=== PATIENT | female | born 1980 | race Caucasian/White ===

== ENCOUNTER 2020-09-02 12:19 | Inpatient (IN) | payer MEDICARE, OTHER ==
[~2020-09-02] VITALS: Ht 165.1 cm; Wt 56.7 kg
[2020-09-02 13:32] LABS: Source, Urine Clean Catch
[2020-09-02 13:37] LABS: BASOPHILS PERCENT AUTO 1 % (0-2); EOSINOPHILS ABSOLUTE AUTO 0.03 K/mm3 (0.00-0.68); EOSINOPHILS PERCENT AUTO 0 % (0-6); Hematocrit 40.8 % (33.0-51.0); Hemoglobin 13.4 g/dL (11.5-16.0); IMMATURE GRAN PERCENT AUTO 1 % (0-1); LYMPHOCYTES ABSOLUTE AUTO 1.71 K/mm3 (0.84-5.20); LYMPHOCYTES PERCENT AUTO 8 % (21-46); MONOCYTES ABSOLUTE AUTO 0.63 K/mm3 (0.16-1.47); MONOCYTES PERCENT AUTO 3 % (4-13); Mean Corpuscular HGB 28.7 pg (26.0-34.0); Mean Corpuscular HGB Conc 32.8 g/dL (31.5-36.5); Mean Corpuscular Volume 87 fL (80-100); NEUTROPHILS PERCENT AUTO 88 % (41-73); Platelet Count 414 K/mm3 (150-400); RDW Coefficient Variation 11.8 % (11.7-14.2); RDW Standard Deviation 37.5 fL (35.1-46.3); Red Blood Cell Count 4.67 M/mm3 (3.80-5.20); White Blood Cell Count 21.67 K/mm3 (4.00-11.30)
[2020-09-02 13:38] LABS: Appearance, Urine Clear (Clear); Bilirubin, Urine Neg (Neg); Blood, Urine 2+ (Neg); Color, Urine Yellow (P-Yellow); Glucose Qualitative, Urine 4+ (Neg); Ketones, Urine 4+ (Neg); Leukocyte Esterase, Urine Neg (Neg); Nitrite, Urine Neg (Neg); Protein, Urine Neg (Neg); Urobilinogen, Urine NORM (Normal)
[2020-09-02 13:55] LABS: Alanine Aminotransfer (ALT/SGP 24 U/L (12-78); Albumin, Blood 4.3 g/dL (3.4-5.0); Albumin/Globulin Ratio 1.1 (0.8-1.8); Alk Phos 156 U/L (50-136); Anion Gap 23 mmol/L (6-16); Aspartate Aminotrans (AST/SGOT 11 U/L (12-37); Bilirubin, Total 0.6 mg/dL (0.1-1.0); Blood Urea Nitrogen 24 mg/dL (8-24); Bun/Creatinine Ratio 45.2 (12.0-20.0); CO2, Blood 14 mmol/L (21-32); Calcium, Blood 9.4 mg/dL (8.5-10.1); Chloride, Blood 94 mmol/L (98-108); Creatinine, Blood 0.53 mg/dL (0.40-1.00); Globulin, Blood 3.8 g/dL (2.2-4.0); Glomerular Filtration Rate >60 (60-); Glucose, Blood 557 mg/dL (70-99); Potassium, Blood 3.9 mmol/L (3.5-5.5); Sodium, Blood 131 mmol/L (136-145); Total Protein, Blood 8.1 g/dL (6.4-8.2)
[2020-09-02 14:07] LABS: Bacteria Few /hpf; Squamous Epithelial Cells Few /hpf (Few); White Blood Cells, Urine 0-2 /hpf (0-5)
[2020-09-02 14:28] LABS: Beta-hydroxybutyrate 55.2 mg/dL (0.2-2.8); Glucose, Blood 567 mg/dL (70-99)
[2020-09-02] MEDS ORDERED: TRESIBA FL200 UNIT/2 (14:32)
[2020-09-02 14:43] LABS: Base Excess Venous -16.7 mmol/L; Bicarbonate Venous 13.1 mmol/L (24.0-30.0); PCO2 Venous 30.5 mmHg (38-42); PO2 Venous 105 mmHg (38-42); pH Blood Venous 7.19 (7.34-7.37)
[2020-09-02] MEDS ORDERED: CYMBALTA30 MG PO (15:07)
[2020-09-02 17:27] LABS: Anion Gap 18 mmol/L (6-16); Blood Urea Nitrogen 22 mg/dL (8-24); CO2, Blood 12 mmol/L (21-32); Calcium, Blood 8.6 mg/dL (8.5-10.1); Chloride, Blood 105 mmol/L (98-108); Creatinine, Blood 0.49 mg/dL (0.40-1.00); Glomerular Filtration Rate >60 (60-); Glucose, Blood 382 mg/dL (70-99); Sodium, Blood 135 mmol/L (136-145)
--- NOTE | 2020-09-02 18:18 | NUR ---
SUMMARY Assumed care of pt upon arrival to ICU 16 from emergency department. Pt arrived with insulin drip to mediport at rate of 5.4 units/hr. Blood sugar checked. Insulin drip increased to 6 units per hour. Pt states she had mediport placed approx 1 month ago. She has it because she has recurrent episodes of DKA triggered by gastroparesis. Pt states she is very anxious. States she takes 1 mg of ativan twice a day at home. This RN contacted pt's pharmacy, [facility], as pt does not know the doses of several of her medications. Per pharmacy, ativan is prescribed 0.5 mg TID. On assessment, pt is A&O x 4. Follows commands. Verbalizes needs. Answers questions, however does not always provide factual answers. Patient asked for Glucerna and this RN educated this was not a good choice considering pt was vomiting. Pt stated "I haven't vomited" although there was emesis in a recently given emesis bag. When asked about emesis in bag, pt states "that's from a long time ago" although this RN replaced bag 10 minutes prior. Another example is this RN found pt in room with IV lines and cords stretched across room. When educated that pt needs to call staff for in-room activity because patient should not be disconnecting cords and lines, pt states "I didn't disconnect anything" although BP cuff and SpO2 were disconnected and these had been connected the last time this RN was in the room (approx 2 minutes prior and nobody else had entered the room). Patient is also difficult to educate. About every 5 minutes, pt asks for ice. Patient educated that this is not a good choice because she is vomiting and often sticking finger down throat to induce vomiting. Pt states "I feel better after I vomit". Pt educated that this is not a good choice and she needs to stop doing this, especially since there is blood in her emesis (emesis is clear but with a red/brown tint). Pt states she understands but then immediately sticks finger in throat to induce vomiting and then again asks for ice. On assessment, lungs are diminished t/o. SpO2 100% on room air. ST per monitor. BP high-normal. Pt voids urine into commode. Stable on feet but has no regard for cords and lines. At this time, insulin drip at 6 units/hr. IV fluids per orders.
[2020-09-02] MEDS ORDERED: OXYC5 PO (18:34)
[2020-09-02] MEDS ORDERED: ONDA4ODT MM (18:35)
[2020-09-02] MEDS ORDERED: LORA.5 PO (18:36)
[2020-09-02] MEDS ORDERED: METO5A PO (18:37)
[2020-09-02] MEDS ORDERED: PROC5 PO (18:38)
[2020-09-02] MEDS ORDERED: Nicoderm Cq1 EAC1 TOP (18:43)
[2020-09-02] MEDS ORDERED: LAMO100 PO (18:43)
[2020-09-02 19:04] LABS: U Amphetamine Screen Not Detected; U Barbituate Screen Not Detected; U Benzodiazapine Screen Not Detected; U Buprenorphine Screen Not Detected; U Cannabinoids Screen DETECTED; U Cocaine Screen Not Detected; U Methadone Screen Not Detected; U Methamphetamine Screen Not Detected; U Opiates Screen Not Detected; U Oxycodone Screen Not Detected; U Phencyclidine Screen Not Detected
[2020-09-02 19:05] LABS: U Propoxyphene Screen Not Detected
[2020-09-02 20:19] LABS: Hematocrit 34.7 % (33.0-51.0); Hemoglobin 11.9 g/dL (11.5-16.0)
[2020-09-02 20:35] LABS: Anion Gap 10 mmol/L (6-16); Blood Urea Nitrogen 20 mg/dL (8-24); Bun/Creatinine Ratio 43.3 (12.0-20.0); CO2, Blood 18 mmol/L (21-32); Calcium, Blood 8.5 mg/dL (8.5-10.1); Chloride, Blood 111 mmol/L (98-108); Creatinine, Blood 0.46 mg/dL (0.40-1.00); Glomerular Filtration Rate >60 (60-); Glucose, Blood 201 mg/dL (70-99); Potassium, Blood 4.2 mmol/L (3.5-5.5); Sodium, Blood 139 mmol/L (136-145)
--- NOTE | 2020-09-02 21:11 | NUR ---
Care Assumed 1900 Pt sitting in bed watching TV. Insulin GTT 5 u/hr and Protonix gtt 10 ml/hr. Dr. Cole called due to patients POC glucose being 233. Recieved orders to switch NS TO D5W1/2NS. Pt is A/O X4, able to make needs known and change position in bed. Pt states chronic throbbing sharp mid back pain of 8/10. Pt has nausea 5-6/10, treated per emar. Pt had 200 mls of liquid brown emesis. She continues to ask for ice chips, food, and liquid after being educated on her NPO status. Disucssed patients code status with her and she would like to be switched from DNR to Limited code status with CPR and meds only. Updatedd Dr. Cole on pts wishes. Code status changed.
--- NOTE | 2020-09-02 22:17 | NUR ---
Update Pt found to be sitting in bed with a finger down her throat to voluntarily gag herself and induce vomit. Pt vomited 200 mls of brown liquid. Discussed with pt the importance of not inducing vomiting. Pt states she needs something to eat/drink or her mouth is too dry. Gave swab to patients with little positive effect. Will continue to monitor.
--- NOTE | 2020-09-02 23:59 | NUR ---
UPDATE Spoke to Dr. Cole in regards to patients nausea/vomiting episode, new orders recieved. Also, pt states having mid back pain 8/10 for which she takes oxycodone at home, recieved orders from Dr. Cole. Diet changed from NPO to clear liquid. Since changes, pt has not vomited nor has she attempted to induce vomit. Nausea has improved from 7/10 to 2/10. Tolerating ice chips well.
[2020-09-03 00:59] LABS: Anion Gap 7 mmol/L (6-16); Blood Urea Nitrogen 18 mg/dL (8-24); Bun/Creatinine Ratio 38.9 (12.0-20.0); CO2, Blood 23 mmol/L (21-32); Calcium, Blood 7.8 mg/dL (8.5-10.1); Chloride, Blood 110 mmol/L (98-108); Creatinine, Blood 0.46 mg/dL (0.40-1.00); Glomerular Filtration Rate >60 (60-); Glucose, Blood 176 mg/dL (70-99); Potassium, Blood 3.6 mmol/L (3.5-5.5); Sodium, Blood 140 mmol/L (136-145)
[2020-09-03 04:39] LABS: BASOPHILS ABSOLUTE AUTO 0.04 K/mm3 (0.00-0.23); BASOPHILS PERCENT AUTO 0 % (0-2); EOSINOPHILS PERCENT AUTO 0 % (0-6); Hematocrit 30.6 % (33.0-51.0); Hemoglobin 10.4 g/dL (11.5-16.0); IMMATURE GRAN ABSOLUTE AUTO 0.13 K/mm3 (0.00-0.10); IMMATURE GRAN PERCENT AUTO 1 % (0-1); LYMPHOCYTES ABSOLUTE AUTO 2.23 K/mm3 (0.84-5.20); LYMPHOCYTES PERCENT AUTO 11 % (21-46); MONOCYTES ABSOLUTE AUTO 1.61 K/mm3 (0.16-1.47); MONOCYTES PERCENT AUTO 8 % (4-13); Mean Corpuscular Volume 85 fL (80-100); Mean Platelet Volume 8.5 fL (9.1-12.4); NEUTROPHILS PERCENT AUTO 80 % (41-73); Platelet Count 319 K/mm3 (150-400); RDW Coefficient Variation 11.9 % (11.7-14.2); RDW Standard Deviation 36.7 fL (35.1-46.3); Red Blood Cell Count 3.59 M/mm3 (3.80-5.20); White Blood Cell Count 20.01 K/mm3 (4.00-11.30)
[2020-09-03 04:57] LABS: Anion Gap 7 mmol/L (6-16); Blood Urea Nitrogen 16 mg/dL (8-24); Bun/Creatinine Ratio 37.4 (12.0-20.0); CO2, Blood 22 mmol/L (21-32); Calcium, Blood 7.9 mg/dL (8.5-10.1); Chloride, Blood 109 mmol/L (98-108); Creatinine, Blood 0.43 mg/dL (0.40-1.00); Glomerular Filtration Rate >60 (60-); Glucose, Blood 138 mg/dL (70-99); Potassium, Blood 3.6 mmol/L (3.5-5.5); Sodium, Blood 138 mmol/L (136-145)
--- NOTE | 2020-09-03 06:14 | NUR ---
Shift Summary Insulin gtt 1 u/hr and 1/2NSD5 100 ML/HR, infusing via left chest mediport. Protonix 10 ml/hr, infusing via left hand IV. Pt denies mid back pain at this time. Nausea of 3/10, no active vomiting since receiving compazine. Pt resting/sleeping t/o the rest of the shift after pain and nausea managed per emar. Pt tolerating being up to the toilet with minimal assistance well. She is A/O X 4. Will report to oncoming shift.
--- NOTE | 2020-09-03 06:55 | NUR ---
ASSUMED PT CARE REPORT FROM MARCIN SERNA. ASSUMED PT CARE. PT ALERT AND ORIENTED. C/O INTERMITTENT NAUSEA. IMPROVED SINCE FRANCISCO RN STARTED COMPAZINE. PT TOLERATING CLEAR LIQUIDS. MOVES IN BED INDEPENDENTLY. USES CALL LIGHT APPROPRIATELY. MAKES NEEDS KNOWN. PT SKIN WARM, INTACT. UP TO TOILED TO VOID. PT HAS 20G TO LEFT HAND WITH PROTONIX INF @ 10ML/HR. SITE WNL. DRESSING C/D/I. PT HAS MEDIPORT TO LEFT CHEST THAT IS ACCESSED AND HAS D51/2NS INF @ 100ML/HR AND INSULIN INF @ 1UNIT/HR. SITE WNL, DRESSING C/D/I. ABD SOFT AND NON TENDER. BOWEL TONES ACTIVE. CALL LIGHT IN REACH. PT RESTING COMFORTABLY AND EASILY DOZES TO SLEEP. SEE FULL SHIFT ASSESSMENT.
[2020-09-03 08:52] LABS: Anion Gap 8 mmol/L (6-16); Blood Urea Nitrogen 14 mg/dL (8-24); Bun/Creatinine Ratio 32.4 (12.0-20.0); CO2, Blood 22 mmol/L (21-32); Calcium, Blood 7.8 mg/dL (8.5-10.1); Chloride, Blood 107 mmol/L (98-108); Creatinine, Blood 0.43 mg/dL (0.40-1.00); Glomerular Filtration Rate >60 (60-); Glucose, Blood 188 mg/dL (70-99); Potassium, Blood 3.5 mmol/L (3.5-5.5); Sodium, Blood 137 mmol/L (136-145)
[2020-09-03 12:18] LABS: BASOPHILS ABSOLUTE AUTO 0.03 K/mm3 (0.00-0.23); BASOPHILS PERCENT AUTO 0 % (0-2); EOSINOPHILS ABSOLUTE AUTO 0.03 K/mm3 (0.00-0.68); EOSINOPHILS PERCENT AUTO 0 % (0-6); Hematocrit 29.1 % (33.0-51.0); Hemoglobin 9.8 g/dL (11.5-16.0); IMMATURE GRAN ABSOLUTE AUTO 0.14 K/mm3 (0.00-0.10); IMMATURE GRAN PERCENT AUTO 1 % (0-1); LYMPHOCYTES ABSOLUTE AUTO 1.93 K/mm3 (0.84-5.20); LYMPHOCYTES PERCENT AUTO 11 % (21-46); MONOCYTES ABSOLUTE AUTO 0.86 K/mm3 (0.16-1.47); MONOCYTES PERCENT AUTO 5 % (4-13); Mean Corpuscular HGB 29.2 pg (26.0-34.0); Mean Corpuscular HGB Conc 33.7 g/dL (31.5-36.5); Mean Corpuscular Volume 87 fL (80-100); Mean Platelet Volume 8.4 fL (9.1-12.4); NEUTROPHILS ABSOLUTE AUTO 14.01 K/mm3 (1.96-9.15); NEUTROPHILS PERCENT AUTO 82 % (41-73); Platelet Count 292 K/mm3 (150-400); RDW Standard Deviation 38.7 fL (35.1-46.3); Red Blood Cell Count 3.36 M/mm3 (3.80-5.20)
[2020-09-03 12:27] LABS: Anion Gap 8 mmol/L (6-16); Blood Urea Nitrogen 10 mg/dL (8-24); Bun/Creatinine Ratio 24.4 (12.0-20.0); CO2, Blood 22 mmol/L (21-32); Calcium, Blood 7.9 mg/dL (8.5-10.1); Chloride, Blood 105 mmol/L (98-108); Creatinine, Blood 0.41 mg/dL (0.40-1.00); Glomerular Filtration Rate >60 (60-); Glucose, Blood 202 mg/dL (70-99); Potassium, Blood 3.6 mmol/L (3.5-5.5); Sodium, Blood 135 mmol/L (136-145)
[2020-09-03] MEDS ORDERED: PANT40 PO (13:38)
--- NOTE | 2020-09-03 13:55 | NUR ---
PT DC HOME WITH MOTHER. IV TO LEFT HAND ALREADY D/C, SITE WNL. AFTER FLUSHING MEDIPORT WITH HEPARIN, SITE DEACCESSED AND DRESSING PLACED. PT DRESSED INTO STREET CLOTHES INDEPENDENTLY. REVIEWED D/C INSTRUCTIONS WITH PT, ADDRESSED ANY QUESTIONS. PT VERBALIZED UNDERSTANDING OF INSTRUCTIONS AND NEW MEDICATION DOSES AND PRESCRIPTIONS. PT SAT IN WHEELCHAIR AND ESCORTED TO LOBBY WITH ALL BELONGINGS BY A HOSPITAL STAFF MEMBER.
== END 2020-09-03 13:57 | disposition home or self-care (01) | DRG 638 ==
LOC: ER 12:19 → ICUW 14:58
PROVIDERS: Emergency Medicine; Physician Assistant; ADMIT Family Medicine
DX: E10.10 Type 1 diabetes mellitus with ketoacidosis without coma (principal); E87.1 Hypo-osmolality and hyponatremia; F17.210 Nicotine dependence, cigarettes, uncomplicated; E10.40 Type 1 diabetes mellitus with diabetic neuropathy, unspecified; Z66 Do not resuscitate; Z79.4 Long term (current) use of insulin
CPT/HCPCS: 36415; 71046; 80048; 80053; 81001; 82010; 82803; 82947; 83036; 85014; 85018; 85025; 87040; 96361; 96365; 96375; 99285-25; A9270; C9113; J0780; J1200; J1642; J1815; J2405; J2550; J2765; J3480; J7030; J7042

== ENCOUNTER 2021-05-19 16:38 | Emergency (ER) | payer MEDICARE, OTHER ==
[~2021-05-19] VITALS: Ht 165.1 cm; Wt 56.7 kg
[~2021-05-19 16:38] MED LIST: CYMBALTA30 MG PO; LAMO100 PO; LORA.5 PO; METO5A PO; Nicoderm Cq1 EAC1 TOP; ONDA4ODT MM; OXYC5 PO; PANT40 PO; PROC5 PO; TRESIBA FL200 UNIT/2
[2021-05-19] MEDS ORDERED: NOVOLOG100 UNIT/2 (18:24)
[2021-05-19 19:55] LABS: BASOPHILS ABSOLUTE AUTO 0.03 K/mm3 (0.00-0.23); BASOPHILS PERCENT AUTO 0 % (0-2); EOSINOPHILS ABSOLUTE AUTO 0.01 K/mm3 (0.00-0.68); EOSINOPHILS PERCENT AUTO 0 % (0-6); Hematocrit 37.7 % (33.0-51.0); Hemoglobin 13.2 g/dL (11.5-16.0); IMMATURE GRAN ABSOLUTE AUTO 0.04 K/mm3 (0.00-0.10); IMMATURE GRAN PERCENT AUTO 0 % (0-1); LYMPHOCYTES ABSOLUTE AUTO 2.24 K/mm3 (0.84-5.20); LYMPHOCYTES PERCENT AUTO 15 % (21-46); MONOCYTES ABSOLUTE AUTO 0.95 K/mm3 (0.16-1.47); MONOCYTES PERCENT AUTO 7 % (4-13); Mean Corpuscular HGB 28.8 pg (26.0-34.0); Mean Corpuscular Volume 82 fL (80-100); Mean Platelet Volume 8.7 fL (9.1-12.4); NEUTROPHILS ABSOLUTE AUTO 11.39 K/mm3 (1.96-9.15); NEUTROPHILS PERCENT AUTO 78 % (41-73); Platelet Count 351 K/mm3 (150-400); RDW Coefficient Variation 12.3 % (11.7-14.2); RDW Standard Deviation 36.9 fL (35.1-46.3); Red Blood Cell Count 4.58 M/mm3 (3.80-5.20); White Blood Cell Count 14.66 K/mm3 (4.00-11.30)
[2021-05-19 20:16] LABS: Alanine Aminotransfer (ALT/SGP 22 U/L (12-78); Albumin, Blood 3.7 g/dL (3.4-5.0); Albumin/Globulin Ratio 1.1 (0.8-1.8); Alk Phos 102 U/L (50-136); Anion Gap 7 mmol/L (6-16); Aspartate Aminotrans (AST/SGOT 23 U/L (12-37); Bilirubin, Total 0.6 mg/dL (0.1-1.0); Blood Urea Nitrogen 6 mg/dL (8-24); Bun/Creatinine Ratio 11.3 (12.0-20.0); CO2, Blood 28 mmol/L (21-32); Chloride, Blood 97 mmol/L (98-108); Creatinine, Blood 0.53 mg/dL (0.40-1.00); Globulin, Blood 3.5 g/dL (2.2-4.0); Glomerular Filtration Rate >60 (60-); Glucose, Blood 98 mg/dL (70-99); Magnesium, Blood 1.8 mg/dL (1.6-2.4); Phosphorus, Blood 2.6 mg/dL (2.5-4.9); Potassium, Blood 2.7 mmol/L (3.5-5.5); Sodium, Blood 132 mmol/L (136-145); Total Protein, Blood 7.2 g/dL (6.4-8.2)
[2021-05-19 20:50] LABS: Source, Urine Clean Catch
[2021-05-19 20:53] LABS: Bilirubin, Urine Neg (Neg); Blood, Urine 3+ (Neg); Glucose Qualitative, Urine Neg (Neg); Ketones, Urine 2+ (Neg); Leukocyte Esterase, Urine Neg (Neg); Nitrite, Urine Neg (Neg); Protein, Urine Neg (Neg); Urobilinogen, Urine NORM (Normal)
[2021-05-19 21:00] LABS: Appearance, Urine Clear (Clear); Bacteria Mod /hpf; Color, Urine Yellow (P-Yellow); Squamous Epithelial Cells Few /hpf (Few); White Blood Cells, Urine 0-2 /hpf (0-5)
[2021-05-19] MEDS ORDERED: Reglan10 MG PO (22:35)
[2021-05-19] MEDS ORDERED: ONDA4ODT SL (22:35)
[2021-05-19] MEDS ORDERED: K-Dur10 MEQ PO (22:35)
[2021-05-19] MEDS ORDERED: Ativan1 MG SL (22:35)
== END 2021-05-19 23:56 | disposition home or self-care (01) ==
LOC: ER 16:38
PROVIDERS: Physician Assistant
DX: R10.12 Left upper quadrant pain (principal); R11.2 Nausea with vomiting, unspecified; E87.6 Hypokalemia; E10.43 Type 1 diabetes mellitus with diabetic autonomic (poly)neuropathy; K31.84 Gastroparesis; E10.40 Type 1 diabetes mellitus with diabetic neuropathy, unspecified; G40.909 Epilepsy, unspecified, not intractable, without status epilepticus; F17.210 Nicotine dependence, cigarettes, uncomplicated; Z88.8 Allergy status to other drugs, medicaments and biological substances; Z88.5 Allergy status to narcotic agent; Z79.899 Other long term (current) drug therapy; Z98.890 Other specified postprocedural states
CPT/HCPCS: 71046; 80053; 81001; 82947; 83690; 83735; 84100; 85025; 87077; 87086; 87186; 93005; 93010; 96361; 96374; 96375; 96376; 99284-25; A9270; J1642; J2060; J2405; J2765; J3480; J7030